=== PATIENT | male | born 1995 | race Caucasian/White ===

== ENCOUNTER 2017-08-01 08:15 | Day surgery (SDC) | payer OTHER ==
[~2017-08-01 08:15] MED LIST: CARBOXYMETHYLCELLULOSE SOD 0.5% 0.4 ML DROPERETTE ONE; CEFAZOLIN 2 GM/D5W RTU 2 GM/50 ML RTUPB IV PRN; DEXAMETHASONE SOD PHOS INJ 10 MG/1 ML VIAL ONE; FENTANYL CITRATE INJ/PF 100 MCG/2 ML AMPUL ONE; HYDROMORPHONE HCL INJ/PF 2 MG/ML AMPULE ONE; MIDAZOLAM 2 MG/2 ML INJ ONE; ONDANSETRON HCL INJ/PF 4 MG/2 ML SDV ONE; PROPOFOL INJ 200 MG/20 ML VIAL IV ONE; ROCURONIUM BROMIDE INJ 50 MG/5 ML VIAL IV ONE; SUCCINYLCHOLINE CHLORIDE INJ 200 MG/10 ML VIAL ONE
[2017-08-01] MEDS ORDERED: MINERAL OIL (STERILE) 10 ML VIAL ONE (09:36)
[2017-08-01] MEDS ORDERED: BUPIVACAINE HCL 0.5 % INJ/PF 30 ML SDV ONE (09:36)
[2017-08-01] MEDS ORDERED: BUPIVACAINE HCL 0.5%/EPI 1:200000 INJ 1.8 ML CARTRIDGE ONE (09:36)
[2017-08-01] MEDS ORDERED: OXYMETAZOLINE HCL 0.05% NASAL SPRAY 15 ML BOTTLE ONE (09:37)
[2017-08-01] MEDS ORDERED: SCOPOLAMINE HYDROBROMIDE 1.5 MG PATCH.TD72 TD PRN (09:53)
[2017-08-01] MEDS: BUPIVACAINE HCL 0.5%-EPI 1:200000 INJ/PF 30 ML VIAL ONE ×2 (10:15→10:51)
[2017-08-01] MEDS ORDERED: DEXMEDETOMIDINE INJ 80 MCG/20 ML VIAL IV ONE (12:10)
[2017-08-01] MEDS ORDERED: BALANCED SALT IRRIG SOLN COMB2 15 ML BOTTLE ONE (13:11)
[2017-08-01] MEDS ORDERED: OXYCODONE-ACETAMINOPHEN 5-325 MG TABLET ONE (15:27)
--- NOTE | 2017-08-03 23:40 | [facility] OPERATIVE REPORT E ---
[facility] NAME: HUMZA LOVETT AGE: 22Y DATE OF SURGERY: 08/01/2017 ROOM: PREOPERATIVE DIAGNOSIS: 1. NASAL DEFORMITIES, ACQUIRED. 2. NASAL SEPTAL DEVIATION, ACQUIRED. 3. CHRONIC NASAL DYSPNEA. 4. BILATERAL INFERIOR TURBINATE HYPERTROPHY. POSTOPERATIVE DIAGNOSIS: 1. NASAL DEFORMITIES, ACQUIRED. 2. NASAL SEPTAL DEVIATION, ACQUIRED. 3. CHRONIC NASAL DYSPNEA. 4. BILATERAL INFERIOR TURBINATE HYPERTROPHY. OPERATION: 1. Endonasal septorhinoplasty involving the bony nasal pyramid. 2. Bilateral inferior turbinate reduction using a submucous resection technique. SURGEON: ES GODWIN D.O. ANESTHESIA: General endotracheal tube. ANESTHESIA STAFF: CATHERINE Hubbard. ESTIMATED BLOOD LOSS: 100 mL. FLUIDS: 1700 mL. COMPLICATIONS: None. DRAINS: None. SPONGE COUNT: Verified. NEEDLE COUNT: Verified. MATERIALS FORWARDED SPECIMEN: None. FINDINGS: 1. Moderate to severe right nasal septal deviation involving bone and cartilage and with a cartilage belly deformity with right convexity. 2. Left external nasal deviation with bony irregularities. 3. Bilateral inferior turbinate hypertrophy, left greater than right. INDICATIONS: This is a 22-year-old white male patient who was seen and evaluated in the [facility] office. The patient had been referred for, and he complained of, a longstanding history of difficult nasal airflow over the years. The patient has sustained repeated nasal trauma with resulting nasal deformities which have also negatively impacted his ability to breath through his nose. The patient denies history of acute recurrent or chronic sinus disease symptoms. The patient has desired to undergo nasal surgery to improve his functional nasal airflow. After extensive discussion with the patient, recommendation and plan was made to proceed with an endonasal/closed septorhinoplasty and bilateral inferior turbinate reduction. The procedures and all of their risks and complications were all discussed in detail with the patient. He voiced an understanding of the described surgical plan, agreed to proceed, and consent was obtained. PROCEDURE: The patient was taken to the main operating room and was placed on the operating room table in the supine position. Appropriate monitor placed. Using mask and IV access, general anesthesia was induced. The patient was then transorally intubated without difficulty. The patient next underwent a nasal examination with injection of local anesthetic with epinephrine to establish a nasal block. Two Afrin-soaked neuro patties were placed per nasal passage. The patient was then prepped and draped in the usual fashion for nasal surgery. The neuro patties were removed. The patient underwent a left hemitransfixion incision with elevation of the mucoperichondrial and mucoperiosteal flaps without difficulty. The bony cartilaginous junction was identified and divided. The most deviated portions of septal cartilage and bone were removed without difficulty. There was a greater than 1.5 x 1.5 cm cartilaginous L-strut that was preserved. The remaining cartilaginous septum was mobilized from the maxillary crest and anterior nasal spine. There were relaxing incisions performed on the left nasal septum to release the memory out of the cartilaginous component of the L-strut to release the bowing deformity. At this point, cartilage which was harvested was fashioned into a left caudal septal graft that was fixed in place with Prolene suture. At this point, the turbinate bipolar wand was used to make 2 passes in each inferior turbinate. The Gianni scissors were then used to enter the anterior aspect of each inferior turbinate followed by use of a Schwertner elevator to elevate tissue in a submucosa plane. At this point, the turbinate microdebrider system at a setting of 1500 rpm was used to perform a submucous resection on each side followed by use of the Yandy elevator to outfracture each inferior turbinate. Less than 1 cm of prominent anterior turbinate bone was removed. The mucosa margins were then trimmed and reapproximated with chromic suture. At this point, there were bilateral intranasal intracartilaginous incisions performed followed by elevation of the nasal dorsal soft tissue enveloped in a subperiosteal plane. Once complete, there was dorsal rasp work performed. Next, the tunnels were created for the rostral lateral osteotomies with entry points performed with the Gianni scissors just superior to takeoff of the inferior turbinate intranasally. There was use of the Rob to create subperiosteal tunnel on each side for the lateral osteotomes. At this point, the medial osteotomies were performed followed by the lateral osteotomies with mobilization of the bony nasal pyramid into the midline. There was a left transcutaneous central osteotomy performed as well. At this point, attention was turned back to the nasal septal area. A right maxillary crest spur was removed with the V-gouge without difficulty. Next, the caudal septal cartilage with graft was positioned into the midline and fixed in place at the anterior nasal spine with 5-0 Prolene suture. Once complete, the 5-0 Prolene suture was also used in a horizontal mattress fashion to form a septal cartilage screening suture. There was also a precise pocket created between the medial crura for the caudal septum margin. Tissue was appropriately trimmed at the left hemitransfixed incision site. At this point, remaining cartilage was placed back between the mucosa flaps and banked. The nose was then thoroughly irrigated and suctioned and there was adequate hemostasis noted. All incisions were reapproximated with chromic suture. On the right there was a morselized cartilage graft placed in the right supratip area prior to enter cartilaginous incision reapproximation with chromic suture. Next, 1 Mendoza silicone nasal splint with Bacitracin ointment was placed per nasal passage. These were secured at the caudal aspect with 4-0 Prolene suture. The patient's nose was then cleaned and dried followed by placement of Mastisol, Steri-Strips, and an aluminum pressure splint. The patient was then returned to the anesthesia staff and was allowed to emerge from general anesthesia. The patient was extubated in the main operating room and was then transported to the postanesthesia recovery unit in stable condition. There were no complications. DICTATING PHYSICIAN: ES GODWIN D.O. [id number] Y#: [id number] ID: [id number] JOB#: [id number] ACCT: [id number] cc:ES GODWIN D.O. >
== END 2017-08-01 15:55 | disposition home or self-care (01) ==
LOC: SC 08:15
PROVIDERS: ATTEND Otolaryngology
PROC: 09TL8ZZ Resection of Nasal Turbinate, Via Natural or Artificial Opening Endoscopic (ICD-10-PCS; 2017-08-01)
PROC: 0NR Head and Facial Bones, Replacement (ICD-10-PCS; principal; 2017-08-01 09:15)
DX: J34.3 Hypertrophy of nasal turbinates (principal); M95.0 Acquired deformity of nose; J34.2 Deviated nasal septum; R06.09 Other forms of dyspnea
CPT/HCPCS: 30420; 30140; J2250; J3490 ×8; J3010; J1170; J0330; J2405; J2704; J1100; J0690; 160